=== PATIENT | female | born 1970 | race Two or more races ===

== ENCOUNTER 2024-03-15 07:13 | Emergency (ER) | payer MEDICAID, SELFPAY ==
[2024-03-15] VITALS (7 sets, daily range): BP systolic 128–141; BP diastolic 76–83; PULSE 75–96; RESP 13–19; TEMP 36.7–37.3; O2SAT 97–100; BMI 34.3
--- NOTE | 2024-03-15 07:29 | XR_ITS ---
Examination: CT abdomen and pelvis without contrast. Coronal 3-D reconstructions. Sagittal 2-D reconstructions. Date and time of exam:March 15, 2024 1127 hours INDICATIONS: Bilateral lower abdominal pain back pain beginning one day ago, nausea vomiting 2 days CTDI: vol (mGy): 12.5 DLP: (mGycm): 801 Technique: Axial images of the abdomen have been obtained, 3 mm slice thickness Intravenous contrast material has not been administered. Low dose protocols were performed. One or more of the following dose reduction techniques were used; automated exposure control, adjustment of the mA and/or KV according to patient size, use of iterative reconstruction technique. Findings: Diffuse fatty infiltration throughout the liver, no focal liver or splenic lesions Distended gallbladder No pancreatic or adrenal mass Minimal left hydronephrosis, no renal or ureteral calculi Aorta normal size No bowel obstruction Absent appendix No bowel obstruction Left adnexal hypodense mass 43 mm which may represent a cyst Urinary bladder intact Mild lumbar spondylosis IMPRESSION: Minimal left hydronephrosis, no renal or ureteral calculi, consider left urinary tract infection Recommend pelvic sonography to assess 43 mm hypodense left adnexal mass
--- NOTE | 2024-03-15 07:32 | PD.EDRME ---
Rapid Medical Screening Exam E Arrival date/time: 03/15/24 07:13 53-year-old female with no known medical history presents to the emergency room with a chief complaint of lower lumbar pain and lower bilateral abdominal pain x 1 day. Patient states she also has nausea and vomiting x 2 days. Chief Complaint: Back Pain/Injury Vital signs: Vital Signs Temperature 98.0 F 03/15/24 07:23 Pulse Rate 75 03/15/24 07:23 Respiratory Rate 19 03/15/24 07:23 Blood Pressure 138/81 H 03/15/24 07:23 Pulse Oximetry (%) 99 03/15/24 07:23 Oxygen Delivery Method Room Air 03/15/24 07:23 Vital signs reviewed by provider: Yes
[2024-03-15] MEDS: KETOROLAC INJ 60 MG/2 ML VIAL 30 MG IM (07:44)
[2024-03-15] MEDS: ONDANSETRON ODT 4 MG TABRAP PO (07:44)
[2024-03-15 08:18] LABS: Basophils % (Auto) 0 % (0-2.5); Eosinophils % (Auto) 0 % (0-10); Hematocrit 41.9 % (36.0-46.0); Hemoglobin 13.6 g/dL (12.0-16.0); Immature Granulocytes % (Auto) 0 % (0-0); Immature Granulocytes Auto 0.06 Thou/mm3 (0.00-0.00); Lymphocytes # (Auto) 1.4 Thou/mm3 (1.0-4.8); Lymphocytes % (Auto) 10 % (10-50); Mean Corpuscular HGB Conc 32.5 g/dl (31.0-37.0); Mean Corpuscular Hemoglobin 29.4 pg (25.0-35.0); Mean Corpuscular Volume 91 fL (80-100); Monocytes # (Auto) 0.5 Thou/mm3 (0.0-0.8); Monocytes % (Auto) 3 % (0-12); Neutrophils # (Auto) 12.7 Thou/mm3 (1.8-7.7); Neutrophils % (Auto) 87 % (37-80); Nucleated Red Blood Cell % 0 /100 WBC (0); Platelet Count 283 Thou/mm3 (140-440); RDW Standard Deviation 47.5 fL (36.4-46.3); Red Blood Count 4.62 Miln/mm3 (4.00-5.20); White Blood Count 14.7 Thou/mm3 (3.6-11.0)
--- NOTE | 2024-03-15 08:24 | PD.EDBACK ---
ED Back Injury Pain RME/HPI General Chief Complaint: Back Pain/Injury Stated Complaint: LOWER BACK PAIN RAD TO LOWER ABD, N/V Arrival date/time: 03/15/24 07:13 RME / HPI RME / HPI Narrative: 03/15/24 07:13 53-year-old female with no known medical history presents to the emergency room with a chief complaint of lower lumbar pain and lower bilateral abdominal pain x 1 day. Patient states she also has nausea and vomiting x [address] SANZ MAIN ED EVALUATION 53 year old female with history of hypertension presents to the ED for evaluation back pain beginning at 03:00 am today. Described as aching in sensation that is located most to bilateral flanks that radiates to the front of abdomen, worse on the left side. Rating as moderate-severe. Accompanied by nausea and nonbloody vomiting x2. Additionally reports since arriving to the ED she has felt dizzy that is worse with with walking. Denies any history of similar pain. Denies any falls/injury/trauma. Related Data Previous Rx's ?Medication ?Instructions ?Recorded docusate sodium 100 mg capsule 100 mg PO BID #60 caps 06/18/17 (Colace) hydrocodone 5 mg-acetaminophen 325 1 tab PO Q6H PRN pain #30 tabs 06/18/17 mg tablet (Repton) hydrocodone 5 mg-acetaminophen 325 1 tab PO Q6H PRN pain #20 tabs 18 mg tablet (Repton) Allergies Allergy/AdvReac Type Severity Reaction Status Date / Time No Known Allergies Allergy Verified 07/02/17 14:31 Review of Systems Review of Systems Narrative Review of Systems: GEN: No fever, no chills, no weight loss, +dizzy EYES: No discharge, no visual changes, no pain HEENT: No ear pain, no congestion, no sore throat PULM: No shortness of breath, no cough, no congestion CV: No chest pain, no dyspnea on exertion, no palpitations GI: + nausea, + vomiting, no diarrhea, + pain, no constipation : No frequency, no urgency and no dysuria MUSC/SKEL No joint pain, + back pain SKIN: No rash PSYCH: No hallucinations, no depression HEME/LYMPH: No easy bleeding or bruising tendencies NEURO: No weakness, no headache Past Medical History Past Medical History NEUROLOGIC: Positive Migraine GASTROINTESTINAL: Positive Gastrointestinal Disorders (constipation) GENITOURINARY: Positive Genitourinary Disorders (uti(5 months ago)) PSYCHO/SOCIAL: Positive Depression (MAR 2015) Family History FAMILY HISTORY: Positive Family Cardiac Disorders (dad(heart attack)), Family Gastrointestinal Problems and Family Cancer (uncle(pancreatic ca)) Surgical History SURGICAL: Positive Tubal Ligation and Section Social History SMOKING STATUS: Never smoker ED Exam Narrative Physical exam: GENERAL APPEARANCE: Well hydrated, well nourished, in no acute distress. VITALS: All vitals were reviewed and the pulse ox is 99% on room air which is normal according to my interpretation. HEENT: Normocephalic, atramatic, EOMI, EACs are patent. There is no bulge or retraction. Throat without erythema or exudate. Moist oromucosa. No jaundice NECK: Supple, no JVD or bruits. CARDIOVASCULAR: Heart regular without S3-S4 or murmur. No rubs or gallops. LUNGS/CHEST: Clear to auscultation bilaterally. No rales, rhonchi, or wheezing. Normal inspection. ABDOMEN: Soft, left lower quadrant and left flank tenderness, with normal bowel sounds. No pulsatile masses. No rebound, rigidity, or guarding. No incarcerated hernia. EXTREMITIES: Normal inspection and palpation. No edema, clubbing, or cyanosis. Intact CSM SKIN: Warm and dry without rashes. Normal inspection. MUSCULOSKELETAL: Normal inspection. No gross deformity, full ROM all extremities NEURO: Alert and oriented x3. Cranial nerves II through XII grossly intact. There are no other motor or sensory deficits noted. PSYCHIATRIC: Normal mood and affect. No psychosis. Course Quality Measures none Orders Category Date Time Status EKG (ED ONLY) *Do not use* NOW Care 03/15/24 09:09 Completed Saline [Insert IV] NOW Care 03/15/24 08:[address] abdomen pelvis wo con Stat Exams 03/15/24 07:29 Completed EKG (ED Only) Stat Exams 03/15/24 09:09 Draft US pelvic complete Stat Exams 03/15/24 14:18 Completed CBC Stat Lab 03/15/24 07:50 Completed CMP [Comprehensive Metabolic Panel] Stat Lab 03/15/24 07:50 Completed HCG Qualitative,Urine Stat Lab 03/15/24 09:09 Completed Lipase Stat Lab 03/15/24 07:50 Completed UA [Urinalysis] Stat Lab 03/15/24 09:09 Completed Urine Culture Stat Lab 03/15/24 07:29 Received Ketorolac Inj [Toradol Inj] Med 03/15/24 07:31 Discontinued 30 mg IM X1 ONE Ondansetron Odt [Zofran Odt] Med 03/15/24 07:31 Discontinued 4 mg PO X1 ONE Sodium Chloride 0.9% 1000 ml [Ns] 1,000 ml Med 03/15/24 08:37 Discontinued IV 999 mls/hr Vital Signs Vital signs: Vital Signs Temperature 98.0 F 03/15/24 07:23 Pulse Rate 75 03/15/24 07:23 Respiratory Rate 19 03/15/24 07:23 Blood Pressure 138/81 H 03/15/24 07:23 Pulse Oximetry (%) 99 03/15/24 07:23 Oxygen Delivery Method Room Air 03/15/24 07:23 Back Pain / Injury MDM Narrative MDM Narrative:: Ale Lorenzo am scribing for and in the presence of Dr. Sanz. Patient presented with the left flank and left lower quadrant abdominal pain and tenderness. CBC white count of 14.7. CMP and lipase are negative. test is negative. UA is negative. CT abdomen and pelvic reviewed by and interpreted by me: No stranding. No significant stones visible. No free air. No free fluid. No dilated loops of bowel gas. No big stone visible. Ultrasound of the pelvic was read by Dr. Ebenezer Chaves radiologist showing a simple cyst measuring approximately 4 cm. The patient has no surgical abdomen at this time. She will be discharged home follow-up with her clinic and [facility]. She can take Motrin for pain. Patient data External records reviewed:: [facility] previous records (I reviewed ED visit from 11/13/2023) Clinical information provided by:: patient Social determinants that could affect healthcare access:: none Patient has the following chronic illnesses:: Hypertension How is presenting disease/condition affected by chronic disease/condition?: uneffected by Evaluation data The following diagnostics were reviewed and interpreted by me:: lab results and radiology exam(s) Lab and/or radiology exams considered but not ordered:: None Interpretation Summary: Ordering Physician: Ameya Sommers Date of Service: 03/15/24 Procedure(s): CT abdomen pelvis wo con Accession Number(s): [id number] cc: Anjel(PixleyCln),Delores ANTONIO; Ameya Sommers; Ebenezer Chaves MD~ Examination: CT abdomen and pelvis without contrast. Coronal 3-D reconstructions. Sagittal 2-D reconstructions. Date and time of exam:March 15, 2024 1127 hours INDICATIONS: Bilateral lower abdominal pain back pain beginning one day ago, nausea vomiting 2 days CTDI: vol (mGy): 12.5 DLP: (mGycm): 801 Technique: Axial images of the abdomen have been obtained, 3 mm slice thickness Intravenous contrast material has not been administered. Low dose protocols were performed. One or more of the following dose reduction techniques were used; automated exposure control, adjustment of the mA and/or KV according to patient size, use of iterative reconstruction technique. Findings: Diffuse fatty infiltration throughout the liver, no focal liver or splenic lesions Distended gallbladder No pancreatic or adrenal mass Minimal left hydronephrosis, no renal or ureteral calculi Aorta normal size No bowel obstruction Absent appendix No bowel obstruction Left adnexal hypodense mass 43 mm which may represent a cyst Urinary bladder intact Mild lumbar spondylosis IMPRESSION: Minimal left hydronephrosis, no renal or ureteral calculi, consider left urinary tract infection Recommend pelvic sonography to assess 43 mm hypodense left adnexal mass Dictated By: Ebeenzer Chaves MD Signed By: <Electronically signed by Ebenezer Chaves MD in OV> 03/15/24 1155 Ordering Physician: Andreas Sanz MD Date of Service: 03/15/24 Procedure(s): US pelvic complete Accession Number(s): [id number] cc: Anjel([email or web address])Delores PA-C; Ebenezer Chaves MD; Andreas Sanz MD~ Examination: Pelvic ultrasound, transabdominal, complete Technique: Transabdominal ultrasound of the pelvis performed using grayscale imaging Date and time of exam: March 15, 2024 1549 hours INDICATIONS: 43 mm hypodense left adnexal mass on CT pelvis study today, left lower abdomen pain onset today FINDINGS: Uterus 10.2 x 4.7 x 6.6 cm No uterine mass or intrauterine gestation Endometrial stripe 0.4 cm Right ovary 2.7 x 2.0 x 1.8 cm arterial flow Left ovary 5.3 x 3.7 x 4.0 cm arterial flow, 3.9 x 3.7 x 3.3 cm cyst IMPRESSION: Left ovarian simple cyst 3.9 x 3.7 x 3.3 cm Dictated By: Ebenezer Chaves MD Signed By: <Electronically signed by Ebenezer Chaves MD in OV> 03/15/24 1614 Medications / Prescriptions Medications or Prescriptions considered but not ordered:: None Medication administrations:: Medication Administration History Discontinued Medications Sodium Chloride (Ns) 1,000 mls @ 999 mls/hr IV .Q1H1M ONE Stop: 03/15/24 09:37 Last Infusion: 03/15/24 11:44 Dose: Infused Documented By: Admin: 03/15/24 09:07 Dose: 999 mls/hr Documented By: Ketorolac Tromethamine (Ketorolac Inj 60 Mg/2 Ml Vial) 30 mg IM X1 ONE Stop: 03/15/24 07:32 Last Admin: 03/15/24 07:44 Dose: 30 mg Documented By: Arielle Ondansetron HCl (Ondansetron Odt 4 Mg Tabrap) 4 mg PO X1 ONE; Protocol Stop: 03/15/24 07:32 Last Admin: 03/15/24 07:44 Dose: 4 mg Documented By: [facility] See above Consultations Consultation(s) initiated? (list below): No Diagnosis Most likely diagnosis given after review of the tests above:: Left ovarian cyst Admission Indicated Admission indicated?: not indicated Admission Request Was there a request for admission?: No Disposition Plan Disposition Plan: Discharge Discharge Attestation Discharge Attestation: The patient and all family members were given an opportunity to ask questions and understood the discharge instructions. Discharge instructions specifically effects, indications for sooner follow up or return to the emergency department, and the expected course of current diagnosis. Patient condition: Stable Discharge Plan Plan Patient Disposition: HOME (Self Care) Disposition Comment: Stable for DC home Prescriptions/Referrals Prescriptions/Med Rec: No Action hydrocodone-acetaminophen [Repton] 5-325 mg tablet 1 tab PO Q6H MDD 3 PRN (Reason: pain) Qty: 20 0RF hydrocodone-acetaminophen [Repton] 5-325 mg tablet 1 tab PO Q6H MDD 4 PRN (Reason: pain) Qty: 30 0RF docusate sodium [Colace] 100 mg capsule 100 mg PO BID Qty: 60 0RF Referrals: Rosy)Delores PA-C [Primary Care Provider] - In 1 week Problem List Clinical Impression: Left ovarian cyst Patient/Caregiver Discharge Instructions Education Materials: ED Ovarian Cyst Additional Instructions: Motrin can be taken for pain. Follow-up with your medical doctor especially [facility] for further evaluation and care of your left ovarian cyst 4 cm. Please show your doctor copy of the CT and ultrasound reports that I gave you. Return the nearest ER if condition worsens or if new symptoms develop especially fever. Print Language: Uzbek Stand Alone Forms: Laurie Award Info., Patient Portal Info Letter
[2024-03-15 08:42] LABS: Alanine Aminotransferase 17 U/L (10-49); Albumin, Serum 4.4 gm/dL (3.5-5.0); Albumin/Globulin Ratio 1.6 (1.2-2.2); Alkaline Phosphatase 70 U/L (46-116); Anion Gap 8 (7-16); Aspartate Amino Transferase 19 U/L (0-34); BUN/Creatinine Ratio 20 Ratio (12-20); Bilirubin,Total 1.4 mg/dL (0.3-1.2); Blood Urea Nitrogen 14 mg/dL (9-23); Calcium 9.6 mg/dL (8.3-10.6); Calcium (Corrected) 9.6 mg/dL (8.5-10.1); Carbon Dioxide 26.5 mMol/L (20.0-31.0); Chloride 106 mMol/L (98-107); Creatinine (Component) 0.7 mg/dL (0.6-1.3); Globulin 2.7 gm/dL (2.3-3.5); Glucose 145 mg/dL (74-106); Lipase 38 U/L (12-53); Osmolality,Calculated 282 (275-295); Potassium 3.9 mMol/L (3.4-5.1); Sodium 140 mMol/L (136-145); Total Protein 7.1 gm/dL (5.7-8.2); eGFR > 60 See Note
--- NOTE | 2024-03-15 08:50 | PC.NURSE ---
PT COMING IN FROM ED LOBBY WITH C/O DIZZINESS, N/V THAT STARTED AT 0300; PT DENIES EATING ANYTHING OUT OF THE NORMAL. PT REPORT 2/10 PAIN ON LLQ ABD. PT STATES HAVING HX WITH HYPERTENSION. PT CONNECTED TO MONITORS AT THIS TIME.
[2024-03-15] MEDS: SODIUM CHLORIDE 0.9% 1000 ML 1,000 ML 999 ML IV (09:07)
--- NOTE | 2024-03-15 09:09 | EKG_ITS ---
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
[2024-03-15 09:22] LABS: Collection Type, Urine Clean Catch
[2024-03-15 10:47] LABS: Bilirubin,Urine Negative (Negative); Blood,Urine 1+ (Negative); Clarity,Urine Turbid (Clear/Hazy); Color,Urine Yellow (Lt Yel-Yel); Glucose, Urine Negative (Negative); Ketones,Urine Trace (Negative); Leukocyte Esterase,Urine Positive (Negative); Nitrite,Urine Negative (Negative); Protein,Urine Trace (Neg - Trace); RBC,Urine 3 /hpf (0-3); Specific Gravity,Urine 1.031 (1.001-1.035); Squamous Epithelial Cell,Urine 18 /hpf (0-5); Urobilinogen,Urine Negative mg/dL (0.0-1.0); WBC,Urine 4 /hpf (0-5)
[2024-03-15 10:50] LABS: HCG Qualitative,Urine Negative
--- NOTE | 2024-03-15 14:18 | XR_ITS ---
Examination: Pelvic ultrasound, transabdominal, complete Technique: Transabdominal ultrasound of the pelvis performed using grayscale imaging Date and time of exam: March 15, 2024 1549 hours INDICATIONS: 43 mm hypodense left adnexal mass on CT pelvis study today, left lower abdomen pain onset today FINDINGS: Uterus 10.2 x 4.7 x 6.6 cm No uterine mass or intrauterine gestation Endometrial stripe 0.4 cm Right ovary 2.7 x 2.0 x 1.8 cm arterial flow Left ovary 5.3 x 3.7 x 4.0 cm arterial flow, 3.9 x 3.7 x 3.3 cm cyst IMPRESSION: Left ovarian simple cyst 3.9 x 3.7 x 3.3 cm
--- NOTE | 2024-03-15 16:44 | PD.EDADDENDU ---
Emergency Room Addendum Addendum Narrative: Twelve-lead EKG at 9:14 AM interpreted by me: Normal sinus rhythm. Heart rate of 80. Normal axis. No ST elevation or depression. No PVC. No STEMI. Regular rate and rhythm.
== END 2024-03-15 17:07 | disposition home or self-care (01) ==
PROVIDERS: Nurse Practitioner Family; Emergency Provider Emergency Medicine; PCP Physician Assistant
DX: N83.292 Other ovarian cyst, left side (principal); N13.30 Unspecified hydronephrosis; I10 Essential (primary) hypertension
CPT/HCPCS: 36415; 74176; 76856; 80053; 81001; 81025; 83690; 85025; 87077; 87086; 87186; 96360; 96361; 96372; 99284; J1885; J7030; Q0162

== ENCOUNTER → 2024-04-05 | Outpatient (CLI) | payer MEDICAID, SELFPAY ==
--- NOTE | 2024-04-05 13:15 | XR_ITS ---
Examination: Screening digital mammography, bilateral Computer aided detection 3-D breast Tomosynthesis, bilateral Date and time of exam: April 05, 2024 1306 hours Compared to mammograms dating to 11/22/2014 Indication: Screening Technique: Nonmagnified MLO, CC views of the breasts to been obtained, reconstructed from 3-D Tomosynthesis images. R2 computer aided detection program utilized for evaluation of suspicious masses and/or abnormal calcifications. 3-D Tomosynthesis images obtained. Findings: Scattered areas of fibroglandular density. Benign calcifications. No interval suspicious masses Impression: BI-RADS category II: Benign Findings. Recommend 1 year follow-up mammogram.
== END | disposition home or self-care (01) ==
LOC: CDIM 12:54
PROVIDERS: Referring Provider Physician Assistant; Visit Provider Physician Assistant
DX: Z12.31 Encounter for screening mammogram for malignant neoplasm of breast (principal); R92.323 Mammographic fibroglandular density, bilateral breasts; R92.1 Mammographic calcification found on diagnostic imaging of breast
CPT/HCPCS: 77063; 77067